=== PATIENT | female | born 1975 | race Caucasian/White ===

== ENCOUNTER 2022-08-04 18:27 | Emergency (ER) | payer OTHER, SELFPAY ==
[2022-08-04 18:37] VITALS: BP 107/51; PULSE 54; RESP 18; TEMP 36.6; O2SAT 99
--- NOTE | 2022-08-04 19:04 | ED.SKABFB ---
HPI - Skin/Abscess/Foreign Bdy General Chief complaint: Skin/Abscess/Foreign Body Stated complaint: Rash Time Seen by Provider: 08/04/22 18:29 Source: patient Mode of arrival: ambulatory Limitations: no limitations History of Present Illness HPI narrative: 46-year-old female presents to [facility] with complaints of rash to her left lateral chest wall since yesterday. Patient reports that she noticed pain to the area a few days ago but that first she just completed a hard workout. Patient reports that she then noticed the rash started yesterday. Patient reports that she has had increased stress in her life Lately. Patient denies nausea, vomiting, diarrhea, fever, bodies, chills, nausea, vomiting or diarrhea. MD complaint: rash Onset (ago): day(s) (1) Quality: burning Relieving factors: none Exacerbating factors: none Associated symptoms: denies other symptoms Treatments prior to arrival: none Related Data Allergies Allergy/AdvReac Type Severity Reaction Status Date / Time No Known Allergies Allergy Verified 08/04/22 18:43 Review of Systems Constitutional: Constitutional: Denies chills, Denies fatigue, Denies fever(s) and Denies weakness ENT: Denies vertigo and Denies dizziness Respiratory: Respiratory: Denies cough, Denies dyspnea and Denies wheezing Gastrointestinal: Gastrointestinal: Denies diarrhea, Denies nausea and Denies vomiting Integumentary/Breasts: Skin/Breast: Reports rash Neurologic: Denies dizziness PMFSH Social History Social History (Updated 08/04/22 @ 19:07 by Ju Glover, CANAL DRIVER) Smoking status: Never smoker Comments At time of signature, I agree with nursing past medical, surgical, social and family history. There is no relevant family history pertinent to the presenting complaint. Exam Const: General: healthy appearing Nutritional Appearance: well nourished Orientation/consciousness: patient oriented x3 Limitations: no limitations Neck: Neck: normal visual inspection Resp: Effort & Inspection: normal respiratory effort and not labored Auscultation: clear to auscultation bilaterally, no crackles, no rales, no rhonchi and no wheezes Cardio: Rate: regular rate Rhythm: regular rhythm Heart sounds: no murmurs Skin: General skin exam: normal color Wounds: no wounds Other: Raised erythematous/vesicular rash noted to left lateral chest wall representing herpes zoster. There is no streaking erythema, open wounds or signs of infection noted. Neuro: General: patient oriented x3 Speech: normal speech Gait exam (Neuro): Normal gait present Psych: Affect: normal affect Attitude: cooperative Course Course Level of Care: Express Care Visit Vital Signs Vital signs: Vital Signs Temperature 36.6 C 08/04/22 18:37 Pulse Rate 54 L 08/04/22 18:37 Respiratory Rate 18 08/04/22 18:37 Blood Pressure 107/51 L 08/04/22 18:37 Pulse Oximetry 99 08/04/22 18:37 Oxygen Delivery Room Air 08/04/22 18:37 Temperature 36.6 C 08/04/22 18:37 Pulse Rate 54 L 08/04/22 18:37 Respiratory Rate 18 08/04/22 18:37 Blood Pressure 107/51 L 08/04/22 18:37 Pulse Oximetry 99 08/04/22 18:37 Oxygen Delivery Room Air 08/04/22 18:37 MDM - Skin/Abscess/Foreign Bdy Differential Diagnosis Differential diagnosis: Likely viral exanthem, impetigo and contact dermatitis Critical Care Time Critical Care Time Critical Care Time: No Discharge Plan Discharge Clinical Impression: Herpes zoster Patient Disposition: Home, Self-Care Condition: Stable Instructions: Shingles (ED) Additional Instructions: [id number] Motrin or Tylenol as needed for pain Keep rash covered when around elderly individuals, individuals with lowered immune system such as individuals going through chemotherapy, children who have not been immunized or women Take acyclovir as prescribed Follow-up with primary care provider if symptoms not Patient Language: Jamaican Prescripti
== END 2022-08-04 19:12 | disposition home or self-care (01) ==
PROVIDERS: Emergency Provider Nurse Practitioner Family
DX: B02.9 Zoster without complications (principal)
CPT/HCPCS: 99203; G0463

== ENCOUNTER 2023-05-09 19:11 | Emergency (ER) | payer OTHER, SELFPAY ==
[2023-05-09 19:21] VITALS: BP 118/73; PULSE 67; RESP 16; TEMP 36.4; O2SAT 100
--- NOTE | 2023-05-09 20:12 | ED.SKABFB ---
HPI - Skin/Abscess/Foreign Bdy General Chief complaint: Skin/Abscess/Foreign Body Stated complaint: Insect Bite Lt Leg Time Seen by Provider: 05/09/23 20:02 Source: patient and RN notes reviewed Mode of arrival: ambulatory Limitations: no limitations History of Present Illness HPI narrative: Patient presents today complaining of a loss sting to her left medial knee yesterday morning. Reports itching and swelling to the leg with a large blister appearing to the area today. She took a dose of Kimmie today without relief. Related Data Allergies Allergy/AdvReac Type Severity Reaction Status Date / Time No Known Allergies Allergy Verified 05/09/23 19:36 Review of Systems Review of Systems: CONSTITUTIONAL: Denies body aches, fever, chills, or sweats. EYES: Denies visual changes, redness, or discharge. ENT: Denies rhinorrhea, congestion, sore throat, or otalgia. CARDIOVASCULAR: Denies chest pain, palpitations, or edema. RESPIRATORY: Denies cough or dyspnea. GASTROINTESTINAL: Denies abdominal pain, nausea, vomiting, or diarrhea. GENITOURINARY: Denies dysuria or hematuria. SKIN: + wasp sting with blistering to left leg MUSCULOSKELETAL: Denies back pain, joint pain, or myalgia. NEUROLOGIC: Denies headache, numbness, tingling, or weakness. PSYCH: Denies depression or anxiety. [facility] Social History Social History Smoking status: Never smoker Comments At time of signature, I have reviewed and agree with nursing past medical, surgical, social and family history unless otherwise noted. Please see nursing chart for further information. There is no relevant family history pertinent to the presenting complaint Exam Narrative: GENERAL: Well-appearing, well-nourished, and in no acute distress. HEAD: Normocephalic, atraumatic. EYES: EOMI. No redness or drainage. Conjunctivae normal. ENT: Mucous membranes pink and moist. NECK: Normal AROM. CHEST: No respiratory distress. EXTREMITIES: Normal range of motion. No edema. SKIN: Warm, dry, no rash. Capillary refill normal. Normal skin turgor. 22 x 9 cm area of erythema to the left medial leg at the knee with very mild induration in the center and 1 cm round blister with yellow fluid. Area is nontender. NEURO: No focal deficits. Alert and oriented x3. Gait steady. PSYCH: Normal affect. No signs of depression or anxiety. Course Course Level of Care: Express Care Visit Vital Signs Vital signs: Vital Signs Temperature 97.6 F 05/09/23 19:21 Pulse Rate 67 05/09/23 19:21 Respiratory Rate 16 05/09/23 19:21 Blood Pressure 118/73 05/09/23 19:21 Pulse Oximetry 100 05/09/23 19:21 Oxygen Delivery Room Air 05/09/23 19:21 Temperature 97.6 F 05/09/23 19:21 Pulse Rate 67 05/09/23 19:21 Respiratory Rate 16 05/09/23 19:21 Blood Pressure 118/73 05/09/23 19:21 Pulse Oximetry 100 05/09/23 19:21 Oxygen Delivery Room Air 05/09/23 19:21 Reviewed MDM - Skin/Abscess/Foreign Bdy MDM Narrative Medical decision making narrative: Symptoms consistent with allergic reaction to insect bite and possible developing cellulitis. Will place patient on prednisone and Keflex. Instructed her to take Benadryl as well. Anticipatory guidance given. Differential Diagnosis Differential diagnosis: Likely abscess of skin or subcutaneous tissue, urticaria, cellulitis, insect bites, impetigo and contact dermatitis Critical Care Time Critical Care Time Critical Care Time: No Discharge Plan Discharge Clinical Impression: Allergic reaction to insect sting Qualifiers: Encounter type: initial encounter Injury intent: accidental or unintentional Qualified Code(s): T63.481A - Toxic effect of venom of other arthropod, accidental (unintentional), initial encounter Patient Disposition: Home, Self-Care Condition: Stable Instructions: Antibiotic Form, Cellulitis (ED), Insect Bite or Sting (ED) A
== END 2023-05-09 20:27 | disposition home or self-care (01) ==
PROVIDERS: Emergency Provider Nurse Practitioner
DX: T63.461A Toxic effect of venom of wasps, accidental (unintentional), initial encounter (principal)
CPT/HCPCS: 99213; G0463